=== PATIENT | male | born 1950 | race Caucasian/White ===

== ENCOUNTER 2016-11-03 13:31 | Day surgery (SDC) | payer OTHER ==
[~2016-11-03] VITALS: Ht 177.8 cm; Wt 79.6 kg
[2016-11-03 15:32] VITALS: Ht 177.8 cm; Wt 79.6 kg
[2016-11-03] MEDS ORDERED: NORVASC PO (15:41)
[2016-11-03] MEDS ORDERED: LOSARTAN PO (15:41)
[2016-11-03 17:14] VITALS: BP 153/74; PULSE 79; RESP 24
[2016-11-03] MEDS ORDERED: MIDAZOLAM 1 MG/ML 2 ML INJ ONE (18:27)
[2016-11-03] MEDS ORDERED: PROPOFOL 40 ML ONE (18:56)
[2016-11-03 19:20] VITALS: BP 123/68; PULSE 74; RESP 18
--- NOTE | 2016-11-03 19:40 | OPR ---
Date/Time of Note Date/Time of Note DATE: 11/03/16 TIME: 19:38 Operative Report Preoperative Diagnosis * Colorectal cancer screening Postoperative Diagnosis Impression: * Normal colonic mucosa to cecum * Moderate-sized internal hemorrhoids Plan: * Follow-up as previously scheduled * Annual Hemoccult stool testing * Screening colonoscopy in 10 years * High-fiber diet . Operation/Procedure Performed * Colonoscopy to cecum Surgeon: CHRIS TERRY MD Anesthesia: MAC Estimated Blood Loss: none Specimens * None Grafts/Implants * None Complications: None CHRIS TERRY MD Nov 03, 2016 19:39
== END 2016-11-03 21:14 | disposition home or self-care (01) ==
LOC: GIL 13:31
PROVIDERS: ATTEND Internal Medicine Gastroenterology
DX: Z12.11 Encounter for screening for malignant neoplasm of colon (principal); K64.8 Other hemorrhoids; I10 Essential (primary) hypertension
CPT/HCPCS: 45378; J2250